=== PATIENT | female | born 1970 | race Caucasian/White ===

== ENCOUNTER 2024-06-06 20:02 | Inpatient (IN) | payer OTHER ==
[~2024-06-06] VITALS: Ht 154.9 cm; Wt 107.9 kg
[2024-06-06] MEDS ORDERED: IBUP-1506 PO (20:34)
[2024-06-06] MEDS ORDERED: METF-1211 PO (20:34)
[2024-06-06] MEDS ORDERED: LEVO112T4 PO (20:34)
[2024-06-06] MEDS ORDERED: OMEP40CA21 PO (20:38)
[2024-06-06] MEDS ORDERED: METF-81 PO (20:38)
[2024-06-06] MEDS ORDERED: TIRZ7.5P3 SQ (20:40)
[2024-06-06 21:05] LABS: COVID AG,FIA SOURCE NASAL SWAB
[2024-06-06 21:05] LABS: BASOPHILS % (AUTO) 0.9 % (0.0-2.0); EOSINOPHILS % (AUTO) 0.9 % (1.0-6.0); HEMATOCRIT 45.5 % (36-46); HEMOGLOBIN 15.2 g/dL (12.0-16.0); LYMPHOCYTES # (AUTO) 2.2 K/uL (1.0-4.8); LYMPHOCYTES % (AUTO) 20.3 % (22.0-44.0); MEAN CORPUSCULAR HEMOGLOBIN 31.7 pg (26.0-34.0); MEAN CORPUSCULAR HGB CONC 33.5 G/dL (31.0-37.0); MEAN CORPUSCULAR VOLUME 95 fL (80-100); MONOCYTES # (AUTO) 1.4 K/uL (0.1-1.0); MONOCYTES % (AUTO) 12.6 % (2.0-9.0); NEUTROPHILS # (AUTO) 7.1 K/uL (1.8-7.7); NEUTROPHILS % (AUTO) 65.3 % (40.0-70.0); PLATELET COUNT (AUTO) 203 K/uL (150-450); RED BLOOD CELL COUNT(AUTO) 4.81 MIL/uL (4.00-5.20); RED CELL DISTRIBUTION WIDTH 12.3 % (11.5-14.5); WHITE BLOOD COUNT (AUTO) 10.8 K/uL (4.5-11.0)
[2024-06-06 21:12] LABS: CALCIUM, TOTAL 8.9 mg/dL (8.8-10.5); CREATININE 1.03 mg/dL (0.60-1.30)
[2024-06-06 21:18] LABS: ALBUMIN 3.6 g/dL (3.4-5.0); BILIRUBIN,DIRECT 0.2 mg/dL (0.00-0.20); TOTAL PROTEIN, SERUM 7.8 g/dL (6.4-8.2)
[2024-06-06 21:26] LABS: SARS-COV2 (COVID) ANTIGEN,FIA Negative (Negative)
[2024-06-06 21:28] LABS: INFLUENZA TYPE A NEGATIVE FOR TYPE A (NEGATIVE); INFLUENZA TYPE B NEGATIVE FOR TYPE B (NEGATIVE)
[2024-06-06 22:30] LABS: TROPONIN I-HIGH SENSITIVITY 6 ng/L (<51)
[2024-06-06] MEDS ORDERED: 0.9% SODIUM CHLORIDE 10 ML SYRINGE IVP PRN (23:00)
[2024-06-06] MEDS ORDERED: SODIUM CHLORIDE 0.9% 100 ML ONE (23:06)
[2024-06-06] MEDS ORDERED: IOHEXOL 350 MG/ML 100 ML VIAL ONE (23:06)
[2024-06-06] MEDS: PIPERACILLIN/TAZO 3.375 GM/D5W 50 ML IV ONE (23:30)
[2024-06-06 23:37] LABS: PROTHROMBIN TIME 11.2 SEC (9.4-11.6)
[2024-06-06] MEDS: SODIUM CHLORIDE 0.9% 1,000 ML IV ONE (23:40)
[2024-06-06 23:42] LABS: LACTIC ACID 1.2 mmol/L (0.4-2.0)
[2024-06-07] MEDS: SODIUM CHLORIDE 0.9% 2,050 ML IV ONE (00:11)
[2024-06-07] MEDS ORDERED: ONDANSETRON HCL 4 MG/2 ML VIAL IVP PRN (01:30)
[2024-06-07 02:23] LABS: APPEARANCE,URINE CLEAR (CLEAR); BILIRUBIN,URINE NEGATIVE (NEGATIVE); COLOR,URINE LIGHT YELLOW (YELLOW); GLUCOSE, URINE (UA) NEGATIVE (NEGATIVE); KETONES,URINE NEGATIVE (NEGATIVE); LEUKOCYTE ESTERASE ,URINE NEGATIVE (NEGATIVE); NITRATE,URINE NEGATIVE (NEGATIVE); OCCULT BLOOD,URINE NEGATIVE (NEGATIVE); PROTEIN,URINE NEGATIVE (NEGATIVE); UROBILINOGEN,URINE <=1.0 mg/dL (<=1.0)
[2024-06-07 02:50] VITALS: BP 112/54; PULSE 61; RESP 17; TEMP 97.3; O2SAT 94
[2024-06-07] MEDS: ACETAMINOPHEN 325 MG TABLET PO PRN (03:05)
[2024-06-07] MEDS: VANCOMYCIN 1.5 GM/WATER(PEG) 300 ML IV ONE (03:06)
[2024-06-07] MEDS: SODIUM CHLORIDE 0.9% 1,000 ML IV SCH (06:13)
[2024-06-07] MEDS: PIPERACILLIN/TAZO 3.375 GM/D5W 50 ML IV SCH (06:13)
[2024-06-07] MEDS: LEVOTHYROXINE SODIUM 112 MCG TABLET PO SCH (06:14)
[2024-06-07 08:23] VITALS: BP 97/51; PULSE 74; RESP 17; TEMP 98.6; O2SAT 100
[2024-06-07] MEDS: VANCOMYCIN HCL 1 GM/D5% WATER 200 ML IV SCH (08:31)
[2024-06-07] MEDS: DOCUSATE SODIUM 100 MG CAPSULE PO SCH (08:54)
[2024-06-07] MEDS: OMEPRAZOLE 20 MG CAPSULE PO SCH (08:54)
[2024-06-07 11:12] VITALS: BP 112/65; PULSE 75; RESP 18; TEMP 98.4; O2SAT 99
[2024-06-07 16:08] VITALS: BP 119/60; PULSE 74; RESP 19; TEMP 98.8; O2SAT 96
[2024-06-07] MEDS: BENZOCAINE/MENTHOL [CEPACOL] LOZENGE PO PRN (18:17)
[2024-06-07 19:56] VITALS: BP 96/46; PULSE 72; RESP 17; TEMP 98.6; O2SAT 96
[2024-06-07] MEDS: DiphenhydrAMINE HCL 25 MG CAPSULE PO PRN (20:35)
[2024-06-08 00:28] VITALS: BP 100/68; PULSE 64; RESP 18; TEMP 98.7; O2SAT 96
[2024-06-08 04:03] VITALS: BP 100/57; PULSE 67; RESP 18; TEMP 99.3; O2SAT 95
[2024-06-08 07:26] LABS: BASOPHILS % (AUTO) 0.4 % (0.0-2.0); EOSINOPHILS % (AUTO) 2.7 % (1.0-6.0); HEMATOCRIT 39.7 % (36-46); HEMOGLOBIN 13.3 g/dL (12.0-16.0); LYMPHOCYTES # (AUTO) 1.6 K/uL (1.0-4.8); LYMPHOCYTES % (AUTO) 20.6 % (22.0-44.0); MEAN CORPUSCULAR HEMOGLOBIN 31.6 pg (26.0-34.0); MEAN CORPUSCULAR HGB CONC 33.6 G/dL (31.0-37.0); MEAN CORPUSCULAR VOLUME 94 fL (80-100); MONOCYTES # (AUTO) 0.9 K/uL (0.1-1.0); MONOCYTES % (AUTO) 11.3 % (2.0-9.0); PLATELET COUNT (AUTO) 165 K/uL (150-450); RED BLOOD CELL COUNT(AUTO) 4.22 MIL/uL (4.00-5.20); RED CELL DISTRIBUTION WIDTH 12.2 % (11.5-14.5); WHITE BLOOD COUNT (AUTO) 7.7 K/uL (4.5-11.0)
[2024-06-08 07:40] LABS: ANION GAP 9 mmol/L (8-16); CARBON DIOXIDE 24 mmol/L (22-29); CHLORIDE 104 mmol/L (98-107); CREATININE 0.93 mg/dL (0.60-1.30); GLOMERULAR FILTR. RATE CALC > 60 mL/min (>60); GLUCOSE,RANDOM 113 mg/dL (70-110); POTASSIUM 3.6 mmol/L (3.5-5.1); SODIUM SERUM 137 mmol/L (136-145); UREA NITROGEN, BLOOD 8 mg/dL (7-18)
[2024-06-08 08:00] VITALS: BP 99/49; PULSE 67; RESP 16; TEMP 99.9; O2SAT 100
[2024-06-08] MEDS: HEPARIN SODIUM,PORCINE 5,000 UNITS/ML VIAL SQ SCH (08:51)
[2024-06-08] MEDS: VANCOMYCIN 1.25 GM/WATER(PEG) 250 ML IV SCH (08:51)
[2024-06-08] MEDS: BENZONATATE 100 MG CAPSULE PO SCH (18:05)
[2024-06-08] MEDS: IBUPROFEN 400 MG TABLET PO ONE (18:26)
[2024-06-08 20:10] VITALS: BP 110/66; PULSE 70; RESP 19; TEMP 98.1; O2SAT 96
[2024-06-09 04:10] VITALS: BP 106/60; PULSE 69; RESP 18; TEMP 97.7; O2SAT 96
[2024-06-09 07:53] LABS: ANION GAP 9 mmol/L (8-16); CALCIUM, TOTAL 8.5 mg/dL (8.8-10.5); CARBON DIOXIDE 25 mmol/L (22-29); CHLORIDE 104 mmol/L (98-107); CREATININE 0.74 mg/dL (0.60-1.30); GLOMERULAR FILTR. RATE CALC > 60 mL/min (>60); GLUCOSE,RANDOM 91 mg/dL (70-110); POTASSIUM 3.5 mmol/L (3.5-5.1); SODIUM SERUM 138 mmol/L (136-145); UREA NITROGEN, BLOOD 8 mg/dL (7-18); VANCOMYCIN,RANDOM 11.9 mcg/mL (25.0-50.0)
[2024-06-09 09:44] VITALS: BP 111/70; PULSE 68; RESP 18; TEMP 98.4; O2SAT 95
[2024-06-09] MEDS: IBUPROFEN 400 MG TABLET PO PRN (15:07)
[2024-06-09 16:18] VITALS: BP 120/73; PULSE 70; RESP 18; TEMP 99.1; O2SAT 96
[2024-06-09] MEDS: GuaiFENesin/D-METHORPHAN [SUGAR-FREE] 200-20MG/10 ML SYRUP UDCUP PO PRN (16:48)
[2024-06-09 19:24] VITALS: BP 128/84; PULSE 77; RESP 18; TEMP 99.7; O2SAT 97
[2024-06-09] MEDS: VANCOMYCIN 1.5 GM/WATER(PEG) 300 ML IV SCH (20:02)
[2024-06-10 04:40] VITALS: BP 99/63; PULSE 69; RESP 18; TEMP 98.1; O2SAT 94
[2024-06-10 06:55] LABS: GLUCOMETER DEV NAME(LOC) 6S.2; GLUCOSE,POINT OF CARE 81 MG/DL (70-110)
[2024-06-10 07:50] VITALS: BP 114/75; PULSE 70; RESP 18; TEMP 98.1; O2SAT 94
[2024-06-10 08:28] LABS: ANION GAP 11 mmol/L (8-16); CALCIUM, TOTAL 8.5 mg/dL (8.8-10.5); CARBON DIOXIDE 24 mmol/L (22-29); CHLORIDE 101 mmol/L (98-107); CREATININE 0.78 mg/dL (0.60-1.30); GLOMERULAR FILTR. RATE CALC > 60 mL/min (>60); GLUCOSE,RANDOM 81 mg/dL (70-110); POTASSIUM 3.6 mmol/L (3.5-5.1); SODIUM SERUM 136 mmol/L (136-145); UREA NITROGEN, BLOOD 10 mg/dL (7-18)
[2024-06-10] MEDS: LIDOCAINE 1%/EPI 1:200,000/PF 10 ML VIAL SQ ONE (14:55)
[2024-06-10 15:45] VITALS: BP 113/74; PULSE 77; RESP 20; TEMP 97.5; O2SAT 95
[2024-06-10 20:15] VITALS: BP 131/89; PULSE 68; RESP 18; TEMP 97.7; O2SAT 95
[2024-06-10] MEDS ORDERED: SODIUM CHLORIDE 0.9% 500 ML IV ONE (20:21)
[2024-06-11 05:05] VITALS: BP 110/66; PULSE 59; RESP 18; TEMP 97.5; O2SAT 95
[2024-06-11 07:25] LABS: ANION GAP 10 mmol/L (8-16); CALCIUM, TOTAL 8.4 mg/dL (8.8-10.5); CARBON DIOXIDE 25 mmol/L (22-29); CHLORIDE 106 mmol/L (98-107); GLOMERULAR FILTR. RATE CALC > 60 mL/min (>60); GLUCOSE,RANDOM 88 mg/dL (70-110); POTASSIUM 3.9 mmol/L (3.5-5.1); SODIUM SERUM 141 mmol/L (136-145); UREA NITROGEN, BLOOD 10 mg/dL (7-18)
[2024-06-11 08:05] VITALS: BP 103/69; PULSE 65; RESP 19; TEMP 97.5; O2SAT 96
[2024-06-11] MEDS ORDERED: SODIUM CHLORIDE 0.9% 500 ML IV ONE (08:10)
[2024-06-11] MEDS: LACTULOSE 20 GM/30 ML SOLUTION UDCUP PO PRN (14:29)
[2024-06-11 19:52] VITALS: BP 131/66; PULSE 68; RESP 18; TEMP 98.2; O2SAT 98
[2024-06-12 04:29] VITALS: BP 110/62; PULSE 65; RESP 18; TEMP 98; O2SAT 96
[2024-06-12 07:50] VITALS: BP 119/70; PULSE 83; RESP 20; TEMP 98.1; O2SAT 98
[2024-06-12 08:56] LABS: ANION GAP 9 mmol/L (8-16); CALCIUM, TOTAL 8.9 mg/dL (8.8-10.5); CARBON DIOXIDE 26 mmol/L (22-29); CHLORIDE 105 mmol/L (98-107); GLOMERULAR FILTR. RATE CALC > 60 mL/min (>60); GLUCOSE,RANDOM 83 mg/dL (70-110); POTASSIUM 3.8 mmol/L (3.5-5.1); SODIUM SERUM 140 mmol/L (136-145); UREA NITROGEN, BLOOD 10 mg/dL (7-18)
[2024-06-12 10:14] LABS: VANCOMYCIN,RANDOM 17.5 mcg/mL (25.0-50.0)
[2024-06-12] MEDS ORDERED: CefTAZidime PENTAHYDRATE 1 GM in DEXTROSE 5%-WATER 50 ML IV SCH (14:30)
[2024-06-12 15:10] VITALS: BP 120/78; PULSE 63; RESP 20; TEMP 97.7; O2SAT 96
[2024-06-12 19:44] VITALS: BP 119/79; PULSE 61; RESP 20; TEMP 98.2; O2SAT 97
[2024-06-13 05:08] VITALS: BP 108/69; PULSE 53; RESP 20; TEMP 97.5; O2SAT 97
[2024-06-13 07:46] LABS: ANION GAP 8 mmol/L (8-16); CALCIUM, TOTAL 8.9 mg/dL (8.8-10.5); CARBON DIOXIDE 27 mmol/L (22-29); CHLORIDE 106 mmol/L (98-107); CREATININE 0.83 mg/dL (0.60-1.30); GLOMERULAR FILTR. RATE CALC > 60 mL/min (>60); GLUCOSE,RANDOM 94 mg/dL (70-110); POTASSIUM 3.8 mmol/L (3.5-5.1); SODIUM SERUM 141 mmol/L (136-145); UREA NITROGEN, BLOOD 11 mg/dL (7-18)
[2024-06-13 08:21] VITALS: BP 91/64; PULSE 60; RESP 18; TEMP 97.5; O2SAT 96
[2024-06-13] MEDS ORDERED: BENZ-227 PO (15:22)
[2024-06-13 15:33] VITALS: BP 105/78; PULSE 58; RESP 18; TEMP 98.2; O2SAT 98
[2024-06-13 15:44] LABS: BASOPHILS % (AUTO) 1.1 % (0.0-2.0); EOSINOPHILS % (AUTO) 3.4 % (1.0-6.0); HEMATOCRIT 44.2 % (36-46); HEMOGLOBIN 14.9 g/dL (12.0-16.0); LYMPHOCYTES # (AUTO) 1.6 K/uL (1.0-4.8); LYMPHOCYTES % (AUTO) 34.2 % (22.0-44.0); MEAN CORPUSCULAR HEMOGLOBIN 31.5 pg (26.0-34.0); MEAN CORPUSCULAR HGB CONC 33.7 G/dL (31.0-37.0); MEAN CORPUSCULAR VOLUME 94 fL (80-100); MONOCYTES # (AUTO) 0.4 K/uL (0.1-1.0); MONOCYTES % (AUTO) 9.8 % (2.0-9.0); NEUTROPHILS # (AUTO) 2.3 K/uL (1.8-7.7); NEUTROPHILS % (AUTO) 51.5 % (40.0-70.0); PLATELET COUNT (AUTO) 250 K/uL (150-450); RED BLOOD CELL COUNT(AUTO) 4.72 MIL/uL (4.00-5.20); RED CELL DISTRIBUTION WIDTH 12.2 % (11.5-14.5); WHITE BLOOD COUNT (AUTO) 4.5 K/uL (4.5-11.0)
[2024-06-13 15:53] LABS: ANION GAP 6 mmol/L (8-16); CALCIUM, TOTAL 9.4 mg/dL (8.8-10.5); CARBON DIOXIDE 28 mmol/L (22-29); CHLORIDE 104 mmol/L (98-107); CREATININE 0.95 mg/dL (0.60-1.30); GLOMERULAR FILTR. RATE CALC > 60 mL/min (>60); GLUCOSE,RANDOM 86 mg/dL (70-110); POTASSIUM 4.2 mmol/L (3.5-5.1); SODIUM SERUM 138 mmol/L (136-145); UREA NITROGEN, BLOOD 13 mg/dL (7-18)
[2024-06-13 15:58] LABS: ALANINE AMINOTRANSFERASE 35 U/L (12-78); ALBUMIN 3.2 g/dL (3.4-5.0); ALKALINE PHOSPHATASE 64 U/L (46-116); ASPARTATE AMINOTRANSFERASE 30 U/L (15-37); BILIRUBIN,TOTAL 0.4 mg/dL (0.1-1.0); TOTAL PROTEIN, SERUM 7.8 g/dL (6.4-8.2)
[2024-06-13] MEDS ORDERED: LEVO750T68 PO (16:21)
[2024-06-13] MEDS: LEVOFLOXACIN 750 MG TABLET PO ONE (16:31)
[2024-06-14] MEDS ORDERED: LEVOFLOXACIN 750 MG TABLET PO SCH (09:00)
== END 2024-06-13 19:19 | disposition home or self-care (01) | DRG 580 ==
LOC: EMS 20:02 → EDH 23:20 → 5N 06-07 02:42 → 6S 06-08 17:56
PROVIDERS: ADMIT Internal Medicine; ATTEND Internal Medicine
PROC: 0W9F0ZZ Drainage of Abdominal Wall, Open Approach (ICD-10-PCS; principal; 2024-06-10)
DX: L02.211 Cutaneous abscess of abdominal wall (principal); D84.9 Immunodeficiency, unspecified; R65.10 Systemic inflammatory response syndrome (SIRS) of non-infectious origin without acute organ dysfunction; Z68.41 Body mass index [BMI] 40.0-44.9, adult; L03.311 Cellulitis of abdominal wall; K74.60 Unspecified cirrhosis of liver; Z20.822 Contact with and (suspected) exposure to COVID-19; E11.9 Type 2 diabetes mellitus without complications; E66.01 Morbid (severe) obesity due to excess calories; K43.2 Incisional hernia without obstruction or gangrene; K76.0 Fatty (change of) liver, not elsewhere classified; E03.9 Hypothyroidism, unspecified; K21.9 Gastro-esophageal reflux disease without esophagitis; S30.1XXA Contusion of abdominal wall, initial encounter; X58.XXXA Exposure to other specified factors, initial encounter; Y93.89 Activity, other specified; Y92.89 Other specified places as the place of occurrence of the external cause; Y99.8 Other external cause status; Z79.84 Long term (current) use of oral hypoglycemic drugs; Z79.899 Other long term (current) drug therapy; Z98.84 Bariatric surgery status; Z90.49 Acquired absence of other specified parts of digestive tract
CPT/HCPCS: 71045; 74177; 76700; 80048; 80053; 80076; 80202; 81003; 82962; 83605; 83690; 83735; 84145; 84484; 85025; 85610; 87040; 87070; 87186; 87205; 87804; 93005; 99285; G0378; J1644; J2543; J3370; J3490; J7030; J7040; J7050; 36415-L1; 36415-TC